=== PATIENT | female | born 1970 | race African-American/Black ===

== ENCOUNTER 2017-08-08 07:11 | Day surgery (SDC) | payer OTHER ==
[2017-08-07 14:41] VITALS: BMI 26.7
[2017-08-08] MEDS ORDERED: LIDOCAINE HCL/PF 2% SDV 5ML VIAL ONE (07:53)
[2017-08-08] MEDS ORDERED: PROPOFOL 20 ML ONE ×2 (07:53)
[2017-08-08 08:33] VITALS: TEMP 98.7
[2017-08-08 08:44] VITALS: PULSE 66
[2017-08-08 10:12] VITALS: BP 125/75
== END 2017-08-08 10:29 | disposition home or self-care (01) ==
LOC: JASU-ENDO 07:11
PROVIDERS: ATTEND Internal Medicine Gastroenterology
PROC: 0DJD8ZZ Inspection of Lower Intestinal Tract, Via Natural or Artificial Opening Endoscopic (ICD-10-PCS; principal; 2017-08-08 08:00)
DX: K57.30 Diverticulosis of large intestine without perforation or abscess without bleeding (principal)